=== PATIENT | female | born 1950 ===

== ENCOUNTER 2021-06-02 12:01 | Day surgery (SDC) | payer MEDICARE ==
[2021-06-01 10:11] VITALS: BMI 22.1
[~2021-06-02 12:01] MED LIST: SODIUM CHLORIDE 0.9% 1,000 ML in EMPTY BAG 1 BAG IV ONE
[2021-06-02] MEDS ORDERED: SODIUM CHLORIDE 0.9% 1,000 ML IV ONE (12:17)
[2021-06-02] MEDS ORDERED: LIDOCAINE 1% INJ 10MG/ML (20 ML MDV) ONE (12:36)
[2021-06-02 12:37] LABS: Basophils % (A) 0 %; Eosinophils # (A) 0.1 k/uL (0-0.7); Eosinophils % (A) 1 %; HCT 47.4 % (34.0-46.0); HGB 16.2 gm/dL (11.4-16.0); Lymphocytes # (A) 2.1 k/uL (1.0-4.8); Lymphocytes % (A) 22 %; MCH 32.3 pg (25.0-35.0); MCHC 34.1 g/dL (31.0-37.0); MCV 94.6 fL (80.0-100.0); Mean Platelet Volume 7.9; Monocytes # (A) 0.4 k/uL (0-1.0); Monocytes % (A) 4 %; Neutrophils # (A) 6.5 k/uL (1.3-7.7); Neutrophils % (A) 71 %; Platelet Count 262 k/uL (150-450); RDW 13.6 % (11.5-15.5); WBC 9.2 k/uL (3.8-10.6)
[2021-06-02 12:57] LABS: African American GFR (CKD) >90 (>60 ml/min/1.73 sqM); Anion Gap 7 mmol/L; Blood Urea Nitrogen 13 mg/dL (7-17); Calcium 9.6 mg/dL (8.4-10.2); Carbon Dioxide 26 mmol/L (22-30); Chloride 104 mmol/L (98-107); Glucose 114 mg/dL (74-99); Non-African American GFR(CKD) 90 (>60 ml/min/1.73 sqM); Sodium 137 mmol/L (137-145)
[2021-06-02] MEDS ORDERED: MIDAZOLAM 2 MG/2 ML VIAL IV ONE (13:04)
[2021-06-02] MEDS ORDERED: fentaNYL (PF) 50 MCG/ML 2 ML AMP ONE (13:07)
[2021-06-02] MEDS ORDERED: LIDOCAINE 1% INJ 10MG/ML (20 ML MDV) SQ ONE (13:07)
[2021-06-02] MEDS ORDERED: fentaNYL (PF) 50 MCG/ML 2 ML AMP IV ONE (13:09)
[2021-06-02] MEDS ORDERED: IOPAMIDOL-250 100ML BTL INTRAARTER ONE (13:23)
--- NOTE | 2021-06-02 14:20 | P.OP ---
Date of Procedure: 06/02/21 Description of Procedure: Preoperative diagnosis: Karen 3 peripheral arterial disease Postoperative diagnosis: Same, right superficial femoral artery occlusion, right infrapopliteal occlusive disease, severe Procedure: [#1 ultrasound guided left common femoral artery access #2 aortogram with bilateral lower extremity runoffs Moderate conscious sedation 23 minutes] Surgeon: Elsy Yoo D.O. EBL: [Less than 10 mL] IV fluids: [See records] Urine output: [Not measured] Drains: [None] Complications: [None immediately apparent] Condition: [Stable to recovery] Operative indication and findings: [Patient is a 71-year-old female who has been having issues walking more than about half a mile prior to having pain in her leg, worse on her right and her left. In the past she has been able to walk safely further but in the past year or so has worsened. She was found to have abnormal arterial imaging as recommended to undergo an aortogram. Risks and benefits were discussed. She seemingly understood and was willing to proceed as such.] Procedure in detail: [Patient was taken to the operative suite and placed in supine position. Bilateral groins are prepped and draped in usual sterile fashion. A preprocedure timeout was performed, all parties were in agreement. The left common femoral artery was identified under ultrasound guidance and using a micropuncture access needle the common femoral artery was accessed. Seldinger technique was used to place a 5-Romanian sheath. Catheters and wires were used access the aorta. An aortogram was performed. The catheter was then brought down the level of the bifurcation and bilateral lower extremity runoffs were obtained and station. Catheters and wires were removed. The sheath was removed and manual pressure was held for hemostasis Angiographic findings: The aorta appeared normal in course and caliber. Patent renal arteries with evidence of accessory renals bilaterally. Visualized portions of the superior mesenteric artery appear patent. On the right the common internal and external iliac arteries appear patent without significant disease. On the left the common, and extra iliac arteries appear patent. There is no easily visualized internal iliac artery although this may be due to overlying artifact. On the right the common femoral artery and deep appear patent. There is no obvious superficial femoral artery takeoff.] There is no there is a small portion of the distal superficial femoral artery that shows patency via collateral flow but then shortly occludes following. There is a portion of the popliteal artery again patent via collaterals but then occludes shortly after. There is severe infrapopliteal disease. There is a very small diminutive appearing anterior tibial artery that traverses to the level of the ankle. There is visualized peroneal artery that fills via collaterals at the distal calf. No posterior tibial artery visualized. On the left the common femoral, superficial and profunda appear patent. There is mild disease throughout the superficial femoral artery. The distal superfici al femoral artery has more modest disease at the abductor canal. The popliteal artery appears patent. There is infrapopliteal disease diffusely however there is visualization of the anterior tibial, tibial peroneal trunk, posterior tibial and peroneal at the level of the midcalf the anterior tibial artery occludes. The posterior tibial appears patent at the ankle. The peroneal occludes through the midcalf. There is significant collateralization bilaterally Plan - Discharge Summary New Discharge Prescriptions: No Action Levothyroxine Sodium [Synthroid] 50 mcg PO DAILY Atorvastatin [Lipitor] 20 mg PO DAILY Aspirin [Adult Low Dose Aspirin EC] 81 mg PO DAILY Cilostazol [Pletal] 100 mg PO BID Discharge Medication List Aspirin [Adult Low Dose Aspirin EC] 81 mg PO DAILY 06/01/21 [History] Atorvastatin [Lipitor] 20 mg PO DAILY 06/01/21 [History] Cilostazol [Pletal] 100 mg PO BID 06/01/21 [History] Levothyroxine Sodium [Synthroid] 50 mcg PO DAILY 06/01/21 [History] Follow up Appointment(s)/Referral(s): Elsy Yoo DO [STAFF PHYSICIAN] - 10 Days Activity/Diet/Wound Care/Special Instructions: No heavy lifting. May shower normally. May resume regular activity otherwise. Continue home medications Discharge Disposition: HOME SELF-CARE
--- NOTE | 2021-06-02 15:02 | IR ---
Fluoroscopy HISTORY: Pain in leg, peripheral vascular occlusive disease 30 seconds fluoroscopy time supplied to the referring clinician. 115 intraoperative C-arm images doc ument the procedure. See dictated report from vascular surgery.
[2021-06-02 19:02] VITALS: BP 129/78; PULSE 79; RESP 20; TEMP 97.3
== END 2021-06-02 19:15 | disposition home or self-care (01) ==
LOC: CATHCVL 12:01 → 6NMEDSUR 13:42 → CATHCVL 19:15
PROVIDERS: ATTEND Surgery
DX: I70.211 Atherosclerosis of native arteries of extremities with intermittent claudication, right leg (principal); E07.9 Disorder of thyroid, unspecified; F17.200 Nicotine dependence, unspecified, uncomplicated; Z20.822 Contact with and (suspected) exposure to COVID-19; Z90.49 Acquired absence of other specified parts of digestive tract; Z80.6 Family history of leukemia; Z80.8 Family history of malignant neoplasm of other organs or systems; Z82.49 Family history of ischemic heart disease and other diseases of the circulatory system; Z83.3 Family history of diabetes mellitus; Z80.1 Family history of malignant neoplasm of trachea, bronchus and lung; Z79.82 Long term (current) use of aspirin; Z79.890 Hormone replacement therapy; Z79.899 Other long term (current) drug therapy; Z79.02 Long term (current) use of antithrombotics/antiplatelets
CPT/HCPCS: 36200; 75625; 75716; 76937; 80048; 85025; 87635; C1769 ×4; C1894; J2250; J2001; J3010; Q9966